=== PATIENT | male | born 1955 | race Caucasian/White ===

== ENCOUNTER 2022-03-30 09:18 | Emergency (ER) | payer MEDICARE, OTHER ==
[~2022-03-30] VITALS: Ht 182.9 cm; Wt 95.0 kg
[2022-03-30 11:06] LABS: HEMATOCRIT 51.9 % (39.0-50.0); IMMATURE GRANULOCYTES 0.7 % (0.0-5.0); MEAN CELL VOLUME 99.6 fL CALC (80.0-100.0); MEAN CORPUSCULAR HGB 30.7 pG CALC (26.0-32.0); MEAN CORPUSCULAR HGB CONC 30.8 g/dL CAL (32.0-36.0); NEUT# 5.79 thou/uL (1.82-7.42); RED BLOOD COUNT 5.21 mill/uL (4.70-6.10); RED CELL DISTRI WIDTH 13.4 % (11.5-15.5)
[2022-03-30 11:24] LABS: URINE BILIRUBIN - DIPSTICK NEGATIVE (NEGATIVE); URINE BLOOD DIPSTICK NEGATIVE (NEGATIVE); URINE COLOR YELLOW; URINE GLUCOSE - DIPSTICK >=1000 mg/dL (NEGATIVE); URINE KETONE NEGATIVE (NEGATIVE); URINE LEUK ESTERASE NEGATIVE (NEGATIVE); URINE PH 6.5 (4.5-8.0); URINE PROTEIN - DIPSTICK NEGATIVE (NEG-TRACE); URINE UROBILINOGEN - DIPSTICK 0.2 E.U./dL (0.2)
[2022-03-30 11:26] LABS: ALBUMIN 3.9 g/dL (3.2-5.0); ALKALINE PHOSPHATASE 90 u/l (38-126); ANION GAP 12 (6-22 (CALC)); BILIRUBIN, TOTAL 0.9 mg/dL (0.0-1.4); BUN 19 mg/dL (8-23); BUN/CREATININE RATIO 16 (12-20 (CALC)); CARBON DIOXIDE 28 mmol/l (22-30); CHLORIDE 104 mmol/l (95-108); CREATININE 1.2 mg/dL (0.7-1.3); GFR > 60 ML/MIN (>=60 (CALC)); GFR FOR AFR.AMER. > 60 ML/MIN (>=60 (CALC)); MAGNESIUM 1.7 mg/dL (1.6-2.3); SGOT/AST 23 u/l (19-48); SODIUM 140 mmol/l (137-146); TOTAL PROTEIN 6.3 g/dL (6.3-8.2)
[2022-03-30 11:26] LABS: URINE NITRITE - DIPSTICK NEGATIVE (Negative)
[2022-03-30] MEDS ORDERED: HYDROCO/APAP1 TA9 PO (13:08)
[2022-03-30 13:17] VITALS: BP 152/95
== END 2022-03-30 13:22 | disposition home or self-care (01) ==
LOC: ED 09:18
PROVIDERS: Family Medicine
DX: N20.1 Calculus of ureter (principal); I10 Essential (primary) hypertension; E03.9 Hypothyroidism, unspecified; E78.5 Hyperlipidemia, unspecified; Z94.0 Kidney transplant status

== ENCOUNTER 2022-04-01 11:36 | Emergency (ER) | payer MEDICARE, OTHER ==
[~2022-04-01] VITALS: Ht 182.9 cm; Wt 96.8 kg
[~2022-04-01 11:36] MED LIST: HYDROCO/APAP1 TA9 PO
[2022-04-01 11:43] VITALS: BP 154/91
[2022-04-01] MEDS ORDERED: PREDNISONE5 MG PO (12:03)
[2022-04-01] MEDS ORDERED: MYCOPHENOLATE500 MG PO (12:03)
[2022-04-01] MEDS ORDERED: TACROLIMUS1 MG PO ×2 (12:04)
[2022-04-01] MEDS ORDERED: NORVASC5 M1 PO (12:05)
[2022-04-01] MEDS ORDERED: LIPITOR20 M1 PO (12:06)
[2022-04-01] MEDS ORDERED: CARVEDILOL6.25 MG PO (12:09)
[2022-04-01] MEDS ORDERED: CLOPIDOGREL75 MG PO (12:10)
[2022-04-01] MEDS ORDERED: ELIQUIS5 MG PO (12:11)
[2022-04-01] MEDS ORDERED: FARXIGA5 MG PO (12:13)
[2022-04-01] MEDS ORDERED: LEVOTHYROXIN125 MCG PO (12:13)
[2022-04-01] MEDS ORDERED: MAGNESIUM 250 M1 TAB PO (12:14)
[2022-04-01] MEDS ORDERED: PRALUENT150 MG SC (12:16)
[2022-04-01 12:30] LABS: HEMATOCRIT 51.3 % (39.0-50.0); HEMOGLOBIN 16.5 g/dl (14.0-18.0); IMMATURE GRANULOCYTES 0.4 % (0.0-5.0); MEAN CELL VOLUME 97.2 fL CALC (80.0-100.0); MEAN CORPUSCULAR HGB 31.3 pG CALC (26.0-32.0); MEAN CORPUSCULAR HGB CONC 32.2 g/dL CAL (32.0-36.0); NEUT# 6.68 thou/uL (1.82-7.42); RED BLOOD COUNT 5.28 mill/uL (4.70-6.10); RED CELL DISTRI WIDTH 13.3 % (11.5-15.5)
[2022-04-01 12:30] LABS: URINE BILIRUBIN - DIPSTICK NEGATIVE (NEGATIVE); URINE BLOOD DIPSTICK TRACE-INTACT (NEGATIVE); URINE COLOR YELLOW; URINE GLUCOSE - DIPSTICK >=1000 mg/dL (NEGATIVE); URINE KETONE NEGATIVE (NEGATIVE); URINE LEUK ESTERASE NEGATIVE (NEGATIVE); URINE PROTEIN - DIPSTICK NEGATIVE (NEG-TRACE); URINE SPECIFIC GRAVITY 1.015; URINE UROBILINOGEN - DIPSTICK 0.2 E.U./dL (0.2)
[2022-04-01 12:35] LABS: ALBUMIN 3.9 g/dL (3.2-5.0); ALKALINE PHOSPHATASE 95 u/l (38-126); ANION GAP 13 (6-22 (CALC)); BUN 13 mg/dL (8-23); BUN/CREATININE RATIO 15 (12-20 (CALC)); CARBON DIOXIDE 25 mmol/l (22-30); CHLORIDE 103 mmol/l (95-108); CREATININE 0.9 mg/dL (0.7-1.3); GFR > 60 ML/MIN (>=60 (CALC)); GFR FOR AFR.AMER. > 60 ML/MIN (>=60 (CALC)); SGOT/AST 21 u/l (19-48); SODIUM 137 mmol/l (137-146); TOTAL PROTEIN 6.4 g/dL (6.3-8.2)
[2022-04-01] MEDS ORDERED: TAMSULOSIN0.4 MG PO (12:38)
[2022-04-01] MEDS ORDERED: ZOFRAN4 MG/TAB PO (12:38)
[2022-04-01 12:49] LABS: BILIRUBIN, TOTAL 1.4 mg/dL (0.0-1.4)
[2022-04-01 12:50] LABS: URINE NITRITE - DIPSTICK NEGATIVE (Negative)
[2022-04-01 13:30] VITALS: BP 154/91
== END 2022-04-01 13:37 | disposition home or self-care (01) ==
LOC: ED 11:36
DX: N20.1 Calculus of ureter (principal); I10 Essential (primary) hypertension; E03.9 Hypothyroidism, unspecified; E78.5 Hyperlipidemia, unspecified

== ENCOUNTER 2023-11-30 19:13 | Emergency (ER) | payer MEDICARE, OTHER ==
[~2023-11-30] VITALS: Ht 182.9 cm; Wt 89.8 kg
[~2023-11-30 19:13] MED LIST changes: +CARVEDILOL6.25 MG PO; +CLOPIDOGREL75 MG PO; +ELIQUIS5 MG PO; +FARXIGA5 MG PO; +LEVOTHYROXIN125 MCG PO; +LIPITOR20 M1 PO; +MAGNESIUM 250 M1 TAB PO; +MYCOPHENOLATE500 MG PO; +NORVASC5 M1 PO; +PRALUENT150 MG SC; +PREDNISONE5 MG PO; +TACROLIMUS1 MG PO; +TAMSULOSIN0.4 MG PO; +ZOFRAN4 MG/TAB PO
[2023-11-30 19:45] VITALS: BP 133/74
[2023-11-30 20:00] VITALS: BP 130/80
[2023-11-30] MEDS ORDERED: ZESTRIL10 M1 PO (20:48)
[2023-11-30 21:28] VITALS: BP 130/80
== END 2023-11-30 21:30 ==
LOC: ED 19:13
DX: S42.301A Unspecified fracture of shaft of humerus, right arm, initial encounter for closed fracture (principal); I10 Essential (primary) hypertension; E03.9 Hypothyroidism, unspecified; E78.5 Hyperlipidemia, unspecified; Z94.0 Kidney transplant status; W18.2XXA Fall in (into) shower or empty bathtub, initial encounter; Y93.E1 Activity, personal bathing and showering; Y92.002 Bathroom of unspecified non-institutional (private) residence as the place of occurrence of the external cause